=== PATIENT | female | born 1965 | race African-American/Black ===

== ENCOUNTER 2017-02-04 10:17 | Inpatient (IN) | payer BC, OTHER ==
[2017-02-01 12:08] LABS: HEMATOCRIT 34.2 % (36.0-48.0); HEMOGLOBIN 11.4 g/dL (12.0-16.0)
[2017-02-01 12:21] LABS: BUN (BLOOD UREA NITROGEN) 17 MG/DL (6-23); CALCIUM, SERUM 9.3 MG/DL (8.5-10.4); CHLORIDE, SERUM 107 MMOL/L (96-112); CO2 (CARBON DIOXIDE) 26 MMOL/L (24-34); CREATININE 1.31 MG/DL (0.55-1.02); GFR AFRICAN AMERICAN 55 ML/MIN (>=60); GFR NON AFRICAN AMERICAN 47 ML/MIN (>=60); GLUCOSE, SERUM 113 MG/DL (60-99); SODIUM, SERUM 141 MMOL/L (135-148)
--- NOTE | ~2017-02-04 | DS ---
Discharge Summary [facility] [address] [place]. [address] NAME: JEANETTE GAR : 67 STATUS : DIS IN PAT#: [id number] AGE: 51 ADM/REG DATE : 02/04/17 MR#: [id number] REPORT SERV DATE: 02/18/17 DICTATED BY: FRANKLIN CANNON DATE: 02/17/17 REPORT STATUS : Draft TRANSCRIBED BY: KIKI DATE: 02/17/17 Data Collection from hospitalization DISCHARGE DIAGNOSES: 1. L5-S1 disk disease and stenosis with recurrent disk herniation. 2. Lumbar radiculopathy. 3. Hypertension. 4. Migraines. 5. Degenerative disk disease. 6. Renal calculi. 7. History of herniation of nucleus pulposus. 8. Palpitations. 9. Murmur. 10.Asthma. 11.Gastroesophageal reflux disease. 12.Anemia. 13.Eczema. 14.Carrier of sickle cell trait. CONSULTATION: Rita Gaspar NP PROCEDURES PERFORMED: L5-S1 laminectomy (this was done for stenosis in addition to that needed for the transforaminal lumbar interbody fusion portion of the case); L5-S1 posterolateral fusion bilaterally; L5-S1 pedicle screw instrumentation bilaterally using Medtronic pedicle screws; right-sided transforaminal lumbar interbody fusion, L5-S1; placement of Medtronic PEEK interbody spacer, L5-S1; local morselized autograft, allograft bone matrix, neuromonitoring, intraoperative O-arm CT scan with computer navigation, 02/04/2017. PATHOLOGY: Lumbar spine-bone and tissue, laminectomy-fragments of hyaline and fibrocartilage and bone consistent with disk material. DISCHARGE MEDICATION: ProAir two puffs via inhaler as needed, albuterol sulfate 0.63 mg via inhaler as needed, Elavil 25 mg at bedtime, Norvasc 5 mg daily, Relpax 40 mg daily, Advair Diskus one puff via inhaler twice a day, Erie 10/325 one tablet every six hours as needed, Percocet one to two tablets every four hours as needed, Phenergan 25 mg every six hours as needed, Zanaflex 4 mg twice a day and as instructed, Topamax 200 mg at bedtime, verapamil 180 mg at bedtime, Zomig 5 mg daily. CONDITION AT DISCHARGE: Stable. DISPOSITION: The patient was discharged home on a regular diet with activities as instructed. She would follow up with me two weeks following discharge. HOSPITAL COURSE: This is a 51-year-old female, who had intractable back and right greater than left leg pain, which had failed conservative treatment, including epidural injections, physical therapy, and medications. Treatment options were discussed and it was elected to proceed with surgical intervention. She was admitted to the hospital for further evaluation Discharge Summary [address] [address] NAME: JEANETTE GAR : 67 STATUS : DIS IN PAT#: [id number] AGE: 51 ADM/REG DATE : 02/04/17 MR#: [id number] REPORT SERV DATE: 02/18/17 DICTATED BY: FRANKLIN CANNON DATE: 02/17/17 REPORT STATUS : Draft TRANSCRIBED BY: KIKI DATE: 02/17/17 and treatment. Upon admission, she was taken to the operating room, where she underwent the above-mentioned procedure. She tolerated this well and there were no complications. Postoperatively, she was seen by Rita Gaspar regarding hypertension and asthma. The patient does not have a history of being diabetic, but she did receive steroids in the surgery. Her blood pressure was controlled postoperatively at the present time. She was going to be placed on telemetry. O2 saturations would be monitored. She has a history of palpitations. Norvasc and verapamil were continued. She would be on defensive monitoring telemetry. O2 was continued. Advair Diskus and albuterol would be received as scheduled. Topamax and Relpax were continued. We were going to check a hemoglobin A1c. On postop day #1, she was evaluated by Physical Therapy. Her drain was removed. She did complain of numbness in the right lower extremity. Over the next couple of days, discharge planning was performed. She had no new complaints. On 02/07/2017, discharge instructions were given. Due to her improved and stable condition, she was discharged home with the above-stated instructions. Information collected by: Lakeshia Castellanos I submit the above information as my discharge summary. ANNMARIE/KIKI Franklin Cannon DO / [id number] CC: DO Maxwell Adkins M.D.
--- NOTE | ~2017-02-04 | CN ---
Consultation Report [facility] [id number] [place]. [address] NAME: JEANETTE GAR : 67 STATUS : ADM IN PAT#: [id number] AGE: 51 ADM/REG DATE : 02/04/17 MR#: [id number] REPORT SERV DATE: 02/05/17 DICTATED BY: KERRYRITAHOLLI VILLASENOR DATE: 02/05/17 REPORT STATUS : Draft TRANSCRIBED BY: MODL DATE: 02/05/17 CONSULTATION DATE OF CONSULTATION: 02/04/2017 REASON FOR CONSULTATION: Consulted for hypertension and asthma. IDENTIFYING DATA: 1. PCP, Maxwell Stokes M.D. 2. Neurologist, Dereck Leary MD. 3. Orthopedist, Franklin Cannon, and Rima Freire M.D. in the past. 4. The patient sees a steerer but she cannot remember his name at present time. She has seen him in the past. HISTORY OF PRESENT ILLNESS: This is a pleasant 51-year-old female, who presents to Dr. Cannon with back pain, bilateral lower extremity pain and weakness. She has failed multiple attempts at conservative treatment, physical therapy. She has had epidural injections and other medications, and she has had a lot of trouble walking so she is presenting for surgery, which she had on 02/04/2017. She is status post L5-S1 open laminectomy, diskectomy, and fusion. The hospitalist group has been consulted to manage her hypertension and asthma. She has a history of migraines, hypertension, asthma, palpitations, questionable sleep apnea according to the patient with no previous study in the past. The patient's history is obtained through interview with the patient as well as weight loss consultant notes that were reviewed in the [facility] and [employer]. PAST MEDICAL HISTORY: 1. Migraines. 2. The patient wears glasses. 3. Degenerative disk disease. 4. Renal calculi. 5. Herniation of nucleus pulposus. 6. Hypertension. 7. Palpitations. 8. Murmur. 9. Asthma. 10.GERD. 11.Questionable sleep apnea according to the patient. She has been told that she has sleep apnea by friends, but there is no previous study. 12.Hay fever. 13.Bronchitis. 14.Anemia. 15.Positive for carrying the sickle-cell trait. Consultation Report [facility] [id number] [place]. [address] NAME: JEANETTE GAR : 67 STATUS : ADM IN PAT#: [id number] AGE: 51 ADM/REG DATE : 02/04/17 MR#: [id number] REPORT SERV DATE: 02/05/17 DICTATED BY: RITA PAYNE DATE: 02/05/17 REPORT STATUS : Draft TRANSCRIBED BY: KIKI DATE: 02/05/17 16.Eczema. HOME MEDICATIONS: 1. Albuterol HFA puffer 2 puffs inhalation p.r.n. shortness of breath. 2. Albuterol 0.63 mg inhalation p.r.n. treatment as needed for shortness of breath. 3. Elavil 25 mg p.o. at bedtime. 4. Norvasc 5 mg p.o. daily. 5. Relpax 40 mg p.o. daily. 6. Advair Diskus 500/50 one puff inhalation twice a day. 7. Crane 10/325 one tablet p.o. every 6 hours p.r.n. pain. 8. Phenergan 25 mg p.o. every 6 hours p.r.n. nausea. 9. Zanaflex 4 mg p.o. twice a day. 10.Topamax 200 mg p.o. at bedtime. 11.Verapamil 180 mg p.o. at bedtime. 12.Zomig 5 mg p.o. daily. 13.Citalopram 20 mg p.o. daily. 14.Nexium 40 mg p.o. daily. ALLERGIES: NO KNOWN ALLERGIES. SOCIAL HISTORY: The patient is single, has four grown children and nine grand children, lives in a single-level home. Does use a cane for ambulation. She has no tobacco, alcohol, or illicit drug use. She previously worked at [employer]. FAMILY HISTORY: Father is . He had CHF. Mother was diabetic, had Alzheimer's dementia as a recent diagnosis, and she has had three brain aneurysms. The patient has one brother and three sisters that are living and healthy. SURGICAL HISTORY: 1. Kidney stone August 2016 and December 2016. 2. Sinus surgery 2000. 3. L-HUSSEIN on 10/30/2016. 4. Partial hysterectomy in the 1990s. 5. A left knee scope on 03/09/2016, and then again in 2017. REVIEW OF SYSTEMS: Review of systems are negative other than what is in HPI. The patient has no nausea and vomiting. No abdominal pain. No diarrhea. No chest pain. No fever. No shortness of breath. At present time, displays no agitation or confusion. PHYSICAL EXAMINATION: VITAL SIGNS: From today, blood pressure 112/66, heart rate 73, O2 saturation 100%, and respiratory rate 14. GENERAL: This is an obese female, 51 years old, lying in bed, in no acute distress. Very pleasant and talkative. Consultation Report [facility] [address] [place]. [address] NAME: JEANETTE GAR : 67 STATUS : ADM IN [facility]#: [id number] AGE: 51 ADM/REG DATE : 02/04/17 MR#: [id number] REPORT SERV DATE: 02/05/17 DICTATED BY: RITA PAYNE DATE: 02/05/17 REPORT STATUS : Draft TRANSCRIBED BY: KIKI DATE: 02/05/17 NEURO: Her head is atraumatic. She is normocephalic, alert and oriented x3. Cranial nerves 2-12 are intact. Mood is pleasant and appropriate. NECK: Supple. Trachea is midline. No JVD noted. No obvious thyromegaly or lymphadenopathy. EENT: Sclerae are nonicteric. Pupils are equal and reactive to light. Nares patent. Mucous membranes moist. Tongue midline without deviation. Soft palate rises equally on phonation. CHEST: No pain with palpation. LUNGS: Clear to auscultation bilaterally with normal respiratory effort. The patient has no increased work of breathing with conversation. CARDIOVASCULAR: S1, S2. The patient displays normal sinus rhythm at the rate at 73. She is on defensive monitoring postoperatively. ABDOMEN: Soft, nontender. Active bowel sounds. No palpable organomegaly. Last bowel movement 02/04/2017. EXTREMITIES: No edema. Normal distal pulses. No calf tenderness. Has TEDs and SCDs in place for DVT prophylaxis. SKIN: Warm and dry. No unusual rashes or lesions. Normal color and turgor. PSYCH: She is pleasant and cooperative. Appropriate mood and affect. SURGICAL WOUND SITE: Dressing clean, dry, and intact. The patient has a Davol drain compressed with sanguinous drainage noted. LABORATORY DATA: Sodium 145, potassium 4.0, chloride 112, BUN 10, creatinine 1.15, GFR 64, glucose 142, calcium 8.5, white blood cell 13.9, hemoglobin 11.1, hematocrit 33.8, platelets are 295. Blood sugars were 117, 149. The patient does not have a history of being diabetic but received steroids in surgery. We will check blood sugar at 2 a.m. and have the staff call if it is greater than 150. On 02/01/2017, she had an EKG that displayed a normal sinus rhythm with a rate of 89, and a nonspecific T-wave abnormality. ASSESSMENT AND PLAN: 1. Hypertension, aware. The blood pressure postoperatively is controlled at present time. The patient is on telemetry, has O2 saturation monitoring. She does have a history of palpitations. We will continue her home medications which are Norvasc and verapamil. She will be on defensive monitoring telemetry. 2. Asthma. Aware. The patient will have her daily medications of Advair Diskus and albuterol scheduled. Continue O2 saturation monitoring and keep her sats 92% or greater. 3. Migraine. Aware. We will continue her home medications which she is on Topamax and Relpax. Labs this morning; BMP, magnesium, phosphorus, CBC, and hemoglobin A1c. The hospitalist group would like to thank you for this consultation. Consultation Report [address] [place]. [address] NAME: JEANETTE GAR : 67 STATUS : ADM IN [facility]#: [id number] AGE: 51 ADM/REG DATE : 02/04/17 MR#: [id number] REPORT SERV DATE: 02/05/17 DICTATED BY: RITA PAYNE DATE: 02/05/17 REPORT STATUS : Draft TRANSCRIBED BY: KIKI DATE: 02/05/17 /KIKI Rita Payne NP / [id number] CC: Franklin Cannon, DO Maxwell Stokes M.D.
--- NOTE | ~2017-02-04 | OP ---
Record Of Operation [facility] [address] [place]. [address] NAME: JEANETTE GAR : 67 STATUS : ADM IN PAT#: [id number] AGE: 51 ADM/REG DATE : 02/04/17 MR#: [id number] REPORT SERV DATE: 02/04/17 DICTATED BY: FRANKLIN CANNON DATE: 02/04/17 REPORT STATUS : Draft TRANSCRIBED BY: MODL DATE: 02/04/17 DATE OF PROCEDURE: 02/04/2017 PREOPERATIVE DIAGNOSIS: L5-S1 disk disease and stenosis with recurrent disk herniation. Lumbar radiculopathy. POSTOPERATIVE DIAGNOSIS: L5-S1 disk disease and stenosis with recurrent disk herniation. Lumbar radiculopathy. PROCEDURES: 1. L5-S1 laminectomy (this was done for stenosis in addition to that needed for the transforaminal Lumbar Interbody Fusion portion of the case. 2. L5-S1 posterolateral fusion bilaterally. 3. L5-S1 pedicle screw instrumentation bilaterally using Medtronic pedicle screws. 4. Right-sided transforaminal lumbar interbody fusion, L5-S1. 5. Placement of Medtronic PEEK interbody spacer, L5-S1. Local morcellized autograft, allograft bone matrix, neuromonitoring, intraoperative O-arm, CT scan with computer navigation. SURGEON: Franklin Cannon DO ANESTHESIA: General. ESTIMATED BLOOD LOSS: 100 mL. COMPLICATIONS: None. INDICATIONS: The patient is a 51-year-old with intractable back and right greater than left leg pain, failed conservative treatment including epidural injections, physical therapy, and medications. After discussion of risks and benefits, elected to proceed with surgery. PROCEDURE IN DETAIL: I identified the patient in the holding area. Consent was obtained. Went to the operating room. Underwent general anesthesia with endotracheal tracheal intubation, turned to prone position, prepped and draped in the usual sterile fashion. Operative safety pause was performed, then we proceeded. A midline longitudinal incision was made over the L5-S1 level taken down through the fascial layer. Paraspinous muscle subperiosteally elevated. O-arm registration frame was placed on spinous process. O-arm was brought in for intraoperative CT scan. Computer registration material was verified and the Medtronic pedicle screws were placed bilaterally at L5 and S1. Arm was brought back in to verify good placement of instrumentation. A rongeur was used to remove spinous process and underlying lamina, L5-S1. Kerrison removed remaining lamina and underlying ligamentum flavum. Performed foraminotomies L5-S1, decompression of the L5 and S1 nerve roots bilaterally. Disk was incised on the right-sided L5-S1, disk was prepared with curettes, rasp, and endplate cutters. Trial spacers implanted. Then, the local morcellized autograft and allograft bone matrix were packed into the interbody space followed by a Medtronic PEEK interbody spacer with allograft bone matrix. Rods were then placed over the screws at L5 Record Of Operation [facility] [id number] [place]. [address] NAME: JEANETTE GAR : 67 STATUS : ADM IN PAT#: [id number] AGE: 51 ADM/REG DATE : 02/04/17 MR#: [id number] REPORT SERV DATE: 02/04/17 DICTATED BY: FRANKLIN CANNON DATE: 02/04/17 REPORT STATUS : Draft TRANSCRIBED BY: MODL DATE: 02/04/17 and S1 bilaterally. Setscrews were placed and final tightened under compression. High- speed decorticating bobby was used to decorticate the remaining bony surfaces at L5 and S1. Irrigation performed. Hemostasis achieved. Local morcellized autograft and allograft bone matrix were packed over the decorticated surfaces. L5 and S1 bilaterally. Subfascial drain was placed. A gram of vancomycin powder sprinkled over the surgical wound, one layered closure performed. Sterile dressings applied. The patient awoke and extubated taken recovery room in stable condition. OPERATIVE FINDINGS: L5-S1 disk disease and stenosis. No sustained neuromonitoring alerts occurred. RANDI/KIKI Franklin Cannon DO / [id number] CC: Franklin Cannon DO
--- NOTE | ~2017-02-04 | PREOPHP ---
PreOp History and Physical [facility] [id number] [facility] [place]. [address] NAME: JEANETTE GAR : 67 STATUS : ADM IN PAT#: [id number] AGE: 51 ADM/REG DATE : 02/04/17 MR#: [id number] REPORT SERV DATE: 02/04/17 DICTATED BY: FRANKLIN CANNON DATE: 02/04/17 REPORT STATUS : Draft TRANSCRIBED BY: KIKI DATE: 02/04/17 CHIEF COMPLAINT: Back pain and bilateral lower extremity pain and weakness. HISTORY OF PRESENT ILLNESS: The patient is a 51-year-old female with intractable back and lower extremity pain, paresthesias, and weakness. Failed multiple attempts at conservative treatment including physical therapy, epidural injections, medications. She is having difficulty and progressive worsening, trouble walking. After discussion of risks and benefits, she elected to proceed with surgery. REVIEW OF SYSTEMS: She denies chest pain, shortness of breath, and bowel or bladder changes. ALLERGIES: DENIED. HOME MEDICATIONS: Include Advair, albuterol, amitriptyline, amlodipine, citalopram, Dymista, hydrocodone, lisinopril, meloxicam, Singulair, ProAir, promethazine, Relpax, tizanidine, topiramate, verapamil, zolmitriptan. PAST MEDICAL HISTORY: Includes bronchitis, gastric reflux, migraines, heart murmur. FAMILY HISTORY: Noncontributory. PHYSICAL EXAMINATION: VITAL SIGNS: Height 5 feet 7 inches, weight 173. BMI 27.1. GENERAL: The patient is healthy appearing, in no acute distress. PSYCH: Alert and oriented x3. Normal mood and affect. VASCULAR: No extremity swelling. SPINE: Decreased lumbar motion. HEART: Regular rate and rhythm. LUNGS: Clear to auscultation. ABDOMEN: Soft, nontender, nondistended. Good bowel sounds. BREASTS AND RECTAL: Both deferred. NEUROLOGIC: Strength in lower extremities was 5/5 bilaterally. Gait is antalgic and somewhat unsteady. No focal deficits. IMAGING: I have reviewed the MRI scan. The patient does have L5-S1 disk disease with stenosis and nerve root compression. ASSESSMENT: L5-S1 disk disease and stenosis, failed conservative treatment as detailed above. PLAN: The patient presents today for surgical intervention. Consent was obtained. All questions answered. She is ready to proceed with surgery. RADHAE/MODL PreOp History and Physical [address] [place]. [address] NAME: JEANETTE GAR : 67 STATUS : ADM IN [facility]#: [id number] AGE: 51 ADM/REG DATE : 02/04/17 MR#: [id number] REPORT SERV DATE: 02/04/17 DICTATED BY: FRANKLIN CANNON DATE: 02/04/17 REPORT STATUS : Draft TRANSCRIBED BY: KIKI DATE: 02/04/17 Franklin Cannon DO / [id number] CC: DO Maxwell Adkins M.D.
[~2017-02-04 10:17] MED LIST: ADVAIR INH; ALBUTEROL0.083 % INH; AMIT50 PO; NORCO1 TA1 PO; NORV10 PO; PR25 PO; PROAIR HFA INH; RELPAX40 MG PO; TOPAMAX100 PO; VERAPAMIL PO; ZANAFLEX 4 MG TA4 MG PO; ZOMIG ZMT5 MG PO
[2017-02-04 18:56] LABS: HEMATOCRIT 33.8 % (36.0-48.0); HEMOGLOBIN 11.1 g/dL (12.0-16.0); MEAN CORPUS HGB CONC 32.8 g/dL (32.0-36.0); MEAN CORPUSCULAR HEMOGLOB 28.3 pg (26.0-34.0); MEAN CORPUSCULAR VOLUME 86.2 fL (80-100); MEAN PLATELET VOLUME 9.7 fL (9.2-13.0); PLATELET COUNT 295 10/3/uL (150-400); RED CELL COUNT 3.92 10/6/uL (4.0-5.6)
[2017-02-04 18:57] LABS: MANUAL DIFF YES %; WHITE BLOOD CELLS 13.9 10/3/uL (4.5-10.5)
[2017-02-04 19:08] LABS: CALCIUM, SERUM 8.5 MG/DL (8.5-10.4); CHLORIDE, SERUM 112 MMOL/L (96-112); CO2 (CARBON DIOXIDE) 24 MMOL/L (24-34); CREATININE 1.15 MG/DL (0.55-1.02); GFR AFRICAN AMERICAN 64 ML/MIN (>=60); GFR NON AFRICAN AMERICAN 55 ML/MIN (>=60); SODIUM, SERUM 145 MMOL/L (135-148)
[2017-02-04 19:09] LABS: BUN (BLOOD UREA NITROGEN) 10 MG/DL (6-23); GLUCOSE, SERUM 142 MG/DL (60-99)
[2017-02-04 19:26] LABS: BAND NEUTROPHILS 3 %; LYMPHOCYTES 12 %; LYMPHOCYTES ABSOLUTE (CALC) 1.67 10/3/uL (0.67-4.30); NEUTROPHILS ABSOLUTE (CALC) 12.23 10/3/uL (2.02-8.40); PLATELET ESTIMATE ADQ (ADEQUATE); RBC MORPHOLOGY NORM (NORMAL); SEGMENTED NEUTROPHIL (0) 85 %; TOTAL NUCLEATED CELLS 100
[2017-02-05 05:27] LABS: BASOPHILS 0.1 %; BASOPHILS ABSOLUTE 0.01 10/3/uL (0.0-0.16); EOSINOPHILS 0 %; HEMOGLOBIN 9.3 g/dL (12.0-16.0); IMMATURE GRANULOCYTES 0.5 %; IMMATURE GRANULOCYTES ABSOLUTE 0.07 10/3/uL (0.0-0.11); LYMPHOCYTES 9.2 %; LYMPHOCYTES ABSOLUTE 1.19 10/3/uL (0.67-4.30); MEAN CORPUSCULAR HEMOGLOB 27.6 pg (26.0-34.0); MEAN CORPUSCULAR VOLUME 86.4 fL (80-100); MEAN PLATELET VOLUME 9.7 fL (9.2-13.0); MONOCYTES 3.3 %; MONOCYTES ABSOLUTE 0.42 10/3/uL (0.21-1.20); NEUTROPHILS 86.9 %; NEUTROPHILS ABSOLUTE 11.22 10/3/uL (2.02-8.40); PLATELET COUNT 289 10/3/uL (150-400); RBC DISTRIBUTION WIDTH 13.1 % (12.0-16.0); RED CELL COUNT 3.37 10/6/uL (4.0-5.6); WHITE BLOOD CELLS 12.9 10/3/uL (4.5-10.5)
[2017-02-05 05:28] LABS: HEMATOCRIT 29.1 % (36.0-48.0); MANUAL DIFF NO %
[2017-02-05 05:45] LABS: CALCIUM, SERUM 8.9 MG/DL (8.5-10.4); CHLORIDE, SERUM 110 MMOL/L (96-112); CO2 (CARBON DIOXIDE) 23 MMOL/L (24-34); CREATININE 1.35 MG/DL (0.55-1.02); GFR AFRICAN AMERICAN 53 ML/MIN (>=60); GFR NON AFRICAN AMERICAN 46 ML/MIN (>=60); GLUCOSE, SERUM 153 MG/DL (60-99); PHOSPHORUS, SERUM 3.1 MG/DL (2.5-4.5); POTASSIUM, SERUM 4.6 MMOL/L (3.5-5.3); SODIUM, SERUM 141 MMOL/L (135-148)
[2017-02-05 05:46] LABS: BUN (BLOOD UREA NITROGEN) 14 MG/DL (6-23)
[2017-02-06 05:39] LABS: CALCIUM, SERUM 8.7 MG/DL (8.5-10.4); CHLORIDE, SERUM 110 MMOL/L (96-112); CO2 (CARBON DIOXIDE) 26 MMOL/L (24-34); CREATININE 1.37 MG/DL (0.55-1.02); GFR AFRICAN AMERICAN 52 ML/MIN (>=60); GFR NON AFRICAN AMERICAN 45 ML/MIN (>=60); GLUCOSE, SERUM 157 MG/DL (60-99); POTASSIUM, SERUM 3.9 MMOL/L (3.5-5.3); SODIUM, SERUM 145 MMOL/L (135-148)
[2017-02-06 05:42] LABS: BUN (BLOOD UREA NITROGEN) 21 MG/DL (6-23)
[2017-02-06] MEDS ORDERED: ZANAFLEX 4 MG TA4 MG PO (09:29)
[2017-02-06] MEDS ORDERED: PCET PO (09:29)
[2017-08-09] MEDS ORDERED: PROTONIX PO (09:58)
[2017-08-09] MEDS ORDERED: BENTYL20 PO (09:58)
[2017-08-09] MEDS ORDERED: ZANTAC300 MG PO (09:59)
[2017-08-09] MEDS ORDERED: NEUR300 PO (10:00)
[2017-08-09] MEDS ORDERED: CELEXA20 PO (10:00)
[2017-08-09] MEDS ORDERED: ISOPTIN SR240 MG PO (10:01)
== END 2017-02-07 15:46 | disposition home or self-care (01) | DRG 460 ==
LOC: SDC/OF 10:17 → 3SO 21:53
PROVIDERS: Nurse Practitioner Adult Health; Orthopaedic Surgery
DX: M51.17 Intervertebral disc disorders with radiculopathy, lumbosacral region (principal); N17.9 Acute kidney failure, unspecified; I10 Essential (primary) hypertension; J45.909 Unspecified asthma, uncomplicated; D57.3 Sickle-cell trait
CPT/HCPCS: 80048; 82962; 83036; 83735; 84100; 85014; 85018; 85025; 87641; 88304; 88311; 93005; 94640; 97116-GP; 97161-GP; A9270-GY; C1713; J0690; J1170; J1644; J2250; J2270; J2405; J2710; J3010; J3370

== ENCOUNTER 2017-03-26 19:40 | Emergency (ER) | payer BC, OTHER ==
[~2017-03-26 19:40] MED LIST changes: +PCET PO
[2017-08-09] MEDS ORDERED: PROTONIX PO (09:58)
[2017-08-09] MEDS ORDERED: BENTYL20 PO (09:58)
[2017-08-09] MEDS ORDERED: ZANTAC300 MG PO (09:59)
[2017-08-09] MEDS ORDERED: CELEXA20 PO (10:00)
[2017-08-09] MEDS ORDERED: NEUR300 PO (10:00)
[2017-08-09] MEDS ORDERED: ISOPTIN SR240 MG PO (10:01)
== END 2017-03-26 20:00 | disposition home or self-care (01) ==
LOC: ER 19:40
PROC: 2W3DX1Z Immobilization of Left Lower Arm using Splint (ICD-10-PCS; principal; 2017-03-26)
DX: S69.92XA Unspecified injury of left wrist, hand and finger(s), initial encounter (principal); I10 Essential (primary) hypertension; Z79.899 Other long term (current) drug therapy; W19.XXXA Unspecified fall, initial encounter
CPT/HCPCS: 73110-LT; 99283; A9270-GY